=== PATIENT | female | born 1985 | race Caucasian/White ===

== ENCOUNTER 2022-04-01 10:58 | Outpatient (CLI) | payer OTHER, SELFPAY ==
[2022-04-01 22:30] LABS: Albumin* 4.4 g/dL (3.3-5.0); Chloride* 107 mmol/L (96-114); Potassium* 4.6 mmol/L (3.6-5.1); Sodium* 140 mmol/L (135-149)
[2022-04-01 22:33] LABS: Alanine Aminotransferase* 29 U/L (4-35); Alkaline Phosphatase* 51 U/L (40-150); Aspartate Amino Transferase* 31 U/L (12-35); Bilirubin Total* 0.4 mg/dL (0.1-1.5); Blood Urea Nitrogen* 11 mg/dL (5-24); Calcium* 9.2 mg/dL (8.4-10.6); Carbon Dioxide* 28 mmol/L (20-32); Creatinine* 0.7 mg/dL (0.5-1.5); Estimated Glomerular Filt Rate 114 ml/min; Total Protein* 6.9 g/dL (6.0-8.3)
[2022-04-01 22:49] LABS: Glucose* 66 mg/dL (60-115)
== END 2022-04-01 10:59 | disposition home or self-care (01) ==
PROVIDERS: PCP Family Medicine; Visit Provider Family Medicine
DX: Z00.00 Encounter for general adult medical examination without abnormal findings (principal); L65.9 Nonscarring hair loss, unspecified; F41.1 Generalized anxiety disorder
CPT/HCPCS: 80053; 84443

== ENCOUNTER 2023-01-06 09:17 | Emergency (ER) | payer OTHER, SELFPAY ==
--- NOTE | 2023-01-06 | CRLHL7_ITS ---
For Patients: As a result of the Century Cures Act, medical imaging exams and procedure reports are released immediately into your electronic medical record. You may view this report before your referring provider. If you have questions, please contact your health care provider. Technique: Single contrast water soluble esophagram performed. Fluoroscopy time 31 seconds. Indication: Painful swallowing Comparison: None. Findings: Ovoid filling defect within the distal esophagus above a narrowed GE junction. No perforation. Impression: Obstruction at the distal esophagus secondary to retained food bolus. Underlying stricture at the GE junction. Dictated by Tristian Larry MD @ 01/06/2023 11:31:08 AM (Electronically Signed)
[2023-01-06 09:26] VITALS: BP 101/68; PULSE 81; RESP 20; TEMP 36.6; O2SAT 98; BMI 23.2
[2023-01-06] MEDS: 0.9 % SODIUM CHLORIDE 1000 ml 1,000 ML IV (11:44)
--- NOTE | 2023-01-06 11:49 | ED.NURSE ---
Pt denies the ondansetron and hydromorphone due to not be nauseous or having any pain at this time.
--- NOTE | 2023-01-06 11:55 | ED_ITS ---
HPI - General Adult General Chief complaint: Ear/Nose/Throat Problem Stated complaint: throat spasms / cant swallow Time Seen by Provider: 01/06/23 09:36 History of Present Illness HPI narrative: This 37-year-old female comes in reporting problems with swallowing. She has a history of food bolus in the esophagus and states that she has had numerous upper GI scopes which have showed Schatzki's ring. She states that she ate some meat yesterday late afternoon and has had difficulty swallowing since then. She states that she spits up soon after attempting to drink anything. Related Data Home Medications Medication Instructions Recorded Confirmed multivitamin 1 tab PO QDAY 04/01/22 01/06/23 escitalopram oxalate 10 mg tablet 10 mg PO DAILY 01/06/23 01/06/23 (Lexapro) Previous Rx's Medication Instructions Recorded bupropion HCl 150 mg 24 hr tablet, 150 mg PO QAM #30 tabs 04/01/22 extended release (Wellbutrin XL) Allergies Allergy/AdvReac Type Severity Reaction Status Date / Time No Known Allergies Allergy Unknown Unknown Verified 01/06/23 09:33 Review of Systems Status of ROS: Reports: 10 or more systems reviewed and unremarkable except as noted in History and below Narrative: Constitutional: No fevers, no weight gain or loss. Eyes: No discharge. No vision changes. HENT: No congestion, no sore throat, no ear pain. Cardiovascular: No chest pain, no palpitations. Respiratory: No shortness of breath, no wheezes, no cough. Gastrointestinal: Unable to swallow. Genitourinary: No dysuria, no hematuria. Musculoskeletal: Normal range of motion. Skin: No rashes, no pruritis. Neurological: No dizziness, weakness, sensory change, speech change. Endo/Heme/Allergies: No bruising or bleeding. No polydipsia. Pysch: no suicidality, no anxiety, no insomnia. All other systems reviewed and are negative. [facility] Medical History (Updated 01/06/23 @ 11:58 by Luis Berrios MD) History of depression ?Z87.59 - Personal history of other complications of , childbirth and the puerperium (ICD-10) ?Z86.59 - Personal history of other mental and behavioral disorders (ICD-10) History of esophageal stricture ?Z87.19 - Personal history of other diseases of the digestive system (ICD-10) Surgical History (Updated 03/26/22 @ 08:06 by Federica Rajput ~ PSR) History of section ?Z98.891 - History of uterine scar from previous surgery (ICD-10) History of breast augmentation (2019) ?Z98.82 - Breast implant status (ICD-10) Family History (Updated 04/01/22 @ 10:33 by Shanon Barron MD) Sister Alcohol dependence Mother Breast cancer Social History (Updated 03/26/22 @ 08:08 by Federica Rajput ~ PSR) Narrative: , 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 HEENT: Normocephalic, atraumatic. Neck: Normal range of motion. Nontender. Supple. Heart: Regular. No murmurs. Normal rate. Intact distal pulses. Lungs: Clear to auscultation. No chest discomfort. No wheezes, rhonchi, or rales. Abdomen: Normal bowel sounds. Nontender. No rebound tenderness. Genitalia: Deferred. Back: No midline tenderness. Normal range of motion. Extremities: Normal range of motion. No injury. Skin: Intact. No rash. Warm. No erythema or pallor. Neurologic: No altered sensation. No weakness. Alert and oriented. Psychiatric: No suicidality. No anxiety or depression. No insomnia. Nursing notes and vitals signs are reviewed. Const: Vital Signs, click to edit/add: Vital Signs - 24 hr 01/06/23 09:26 01/06/23 12:10 Temperature 98 F Pulse Rate [Pulse Oximeter] 81 78 Respiratory Rate 20 20 Blood Pressure [Ri ght Upper Arm] 101/68 115/78 Pulse Oximetry 98 98 Oxygen Delivery Me thod Room Air Room Air Course Vital Signs Vital signs: Initial Vital Signs Temperature 98 F 01/06/23 09:26 Temperature Source Temporal Artery Scan 01/06/23 09:26 Pulse Rate 81 01/06/23 09:26 Pulse Rhythm Regular 01/06/23 09:26 Respiratory Rate 20 01/06/23 09:26 Blood Pressure 101/68 01/06/23 09:26 Blood Pressure Mean 79 01/06/23 09:26 Blood Pressure Position Sitting 01/06/23 09:26 Pulse Oximetry 98 01/06/23 09:26 Oxygen Delivery Method Room Air 01/06/23 09:26 Vital Signs Temperature 98 F 01/06/23 09:26 Pulse Rate 81 01/06/23 09:26 Respiratory Rate 20 01/06/23 09:26 Blood Pressure 101/68 01/06/23 09:26 Pulse Oximetry 98 01/06/23 09:26 Oxygen Delivery Method Room Air 01/06/23 09:26 Temperature 98 F 01/06/23 09:26 Pulse Rate 78 01/06/23 12:10 Respiratory Rate 20 01/06/23 12:10 Blood Pressure 115/78 01/06/23 12:10 Pulse Oximetry 98 01/06/23 12:10 Oxygen Delivery Method Room Air 01/06/23 12:10 Medications Administered Medications: Discontinued Medications Generic Name Dose Route Start Last Admin Trade Name Freq PRN Reason Stop Dose Admin Hydromorphone HCl 0.5 mg 01/06/23 11:26 01/06/23 12:08 Hydromorphone 0.5 Mg/0.5 Ml Inj IVP 01/06/23 11:27 0.5 mg ONCE ONE Administration Sodium Chloride 1,000 mls @ 1,000 mls/hr 01/06/23 11:30 01/06/23 12:43 0.9 % Sodium Chloride 1000 Ml IV 01/06/23 12:29 Infused .Q1H SHERITA Infusion Ondansetron HCl 4 mg 01/06/23 11:26 01/06/23 12:08 Ondansetron 2 Mg/Ml Inj IVP 01/06/23 11:27 4 mg ONCE ONE Administration Medical Decision Making MDM Narrative Medical decision making narrative: This patient has a history of esophageal strictures and comes in reporting inability to swallow after taking some meat yesterday. I spoke with the surgeon on-call, Dr. Epperson, who recommended she have a Gastrografin swallow study. This was completed which shows evidence of a food bolus of some kind of meat lodged in the lower esophagus. The patient did receive an IV with a L of normal saline and did also get Dilaudid 0.5 mg and Zofran 4 mg intravenously. Gastrografin swallow study does show a stricture with food bolus. The patient was unable to pass any of the Gastrografin and instead vomited it back up. Dr. Epperson stated that she was a bit uncomfortable about doing an upper GI scope given the length of the stricture and the increased risk for esophageal rupture. I then conta cted [facility] at [facility]. They are able to accommodate her for an upper GI scope today. The patient is okay to go by private vehicle to the main entrance where they will accommodate her. Discharge Plan Discharge Clinical Impression: Food impaction of esophagus Patient Disposition: Home w/ Parent or Adult Condition: Unchanged Additional Instructions: Proceed directly to [facility] main entrance for upper endoscopy. Follow up with MD otherwise or return if worsening. Prescriptions: No Action multivitamin Tablet 1 tab PO QDAY bupropion HCl [Wellbutrin XL] 150 mg tablet extended release 24 hr 150 mg PO QAM Qty: 30 12RF escitalopram oxalate [Lexapro] 10 mg tablet 10 mg PO DAILY Follow Up/Referrals: Shanon Barron MD [Primary Care Provider] - Stand Alone Forms: [employer])th Info Instructions
[2023-01-06] MEDS: HYDROmorphone 0.5 mg/0.5 ml inj IVP (12:08)
[2023-01-06] MEDS: ONDANSETRON 2 MG/ML inj 4 MG IVP (12:08)
[2023-01-06 12:10] VITALS: BP 115/78; PULSE 78; RESP 20; O2SAT 98
[2023-01-06 13:31] VITALS: BP 114/73; PULSE 64; RESP 18; TEMP 36.4; O2SAT 97
--- NOTE | 2023-01-06 13:34 | PM.EN ---
Chart Event Note Chart Event Note: Spoke with Dr. Diego given concern for food impaction. Patient with history of multiple EGD's and esophageal dilations in the past, reportedly Schatzki's ring. Recommended esophagram to evaluate anatomy. Evidence of 1cm food bolus and large are of stricture to the distal esophagus. Patient is at higher risk for perforation with area likely having scar tissue from previous dilations. Concern also for diagnosis of Achalasia with dilated proximal esophagus and bird beak appearance on imaging. Recommend transfer to a higher level of care to remove impacted food and evaluate for possible dilation to long stricture.
--- NOTE | 2023-01-06 13:52 | ED.NURSE ---
Pt transferred to [facility] via personal car. Pt left with IV in arm as ordered to by .
== END 2023-01-06 13:45 | disposition home or self-care (01) ==
PROVIDERS: Emergency Provider Emergency Medicine Emergency Medical Services; PCP Family Medicine
DX: T18.128A Food in esophagus causing other injury, initial encounter (principal)
CPT/HCPCS: 74220; 96374; 96375; 99284; J1170; J2405; J7030; Q9963

== ENCOUNTER 2025-01-10 08:15 | Outpatient (CLI) | payer BC, SELFPAY ==
[2025-01-12 13:14] LABS: HPV Source Endocervical
[2025-01-12 14:19] LABS: Pap Test Digital Imaging Done
== END 2025-01-10 08:16 | disposition home or self-care (01) ==
PROVIDERS: PCP Family Medicine; Visit Provider Family Medicine
DX: Z00.00 Encounter for general adult medical examination without abnormal findings (principal); Z12.4 Encounter for screening for malignant neoplasm of cervix; L65.9 Nonscarring hair loss, unspecified; Z11.59 Encounter for screening for other viral diseases; Z13.21 Encounter for screening for nutritional disorder
CPT/HCPCS: 82306; 82607; 84443; 86803; 87624; 87625; 88141; 88142; 88175

== ENCOUNTER 2025-01-28 11:15 | Outpatient (CLI) | payer BC, SELFPAY ==
--- NOTE | 2025-01-28 11:15 | CRLHL7_ITS ---
For Patients: As a result of the Century Cures Act, medical imaging exams and procedure reports are released immediately into your electronic medical record. You may view this report before your referring provider. If you have questions, please contact your health care provider. INDICATION: Displacement of IUD, strings not visualized COMPARISON: None. TECHNIQUE: 2D patino-scale and color Doppler images were acquired of the pelvis using a transabdominal and transvaginal approach. Transvaginal imaging performed to better visualize the endometrial stripe and ovaries. FINDINGS: Sonographic images demonstrate a normal size and smooth outer contour of the uterus. Uterus measures 8.7 cm in length by 4.1 cm in AP diameter by 5.0 cm in transverse dimension. The myometrium has a normal uniform echotexture. Endometrium measures 3.5 millimeters. Normal position of an IUD within the endometrial canal. The right ovary measures 3.9 x 2.5 x 3.0 cm in size and the left ovary measures 2.6 x 1.5 x 2.2 cm. The ovaries demonstrate normal arterial and venous blood flow on color Doppler analysis. There are no suspicious fluid collections within the cul-de-sac. Simple cyst right ovary measures 12 x 14 x 14 millimeters. IMPRESSION: Normal position of an IUD within the endometrial canal. Dictated by Tristian Larry MD @ 01/28/2025 12:13:57 PM (Electronically Signed)
== END 2025-01-28 11:16 | disposition home or self-care (01) ==
LOC: US 11:16
PROVIDERS: PCP Family Medicine; Visit Provider Family Medicine
DX: T83.32XA Displacement of intrauterine contraceptive device, initial encounter (principal)
CPT/HCPCS: 76830; 76856; 93976